=== PATIENT | female | born 1990 | race Caucasian/White ===

== ENCOUNTER 2017-04-04 03:38 | Inpatient (IN) | payer OTHER, BC ==
[2017-04-04] VITALS (16 sets, daily range): BP systolic 108–166; BP diastolic 64–87
[~2017-04-04] VITALS: Ht 175.3 cm; Wt 83.6 kg
[2017-04-04] MEDS ORDERED: PRENATAL TABLE1 EAC3 PO (04:32)
[2017-04-04 05:45] LABS: BASOPHIL (%) 0.7 % (0-1); BASOPHIL COUNT 0.1 K/uL (0-0.1); EOSINOPHIL (%) 0.2 % (0-5); HEMATOCRIT 39.2 % (36.0-46.0); HEMOGLOBIN 13.9 G/DL (11.9-15.5); LYMPHOCYTE (%) 14.9 % (15-42); LYMPHOCYTE COUNT 1.5 K/uL (1.0-2.8); MCH 29.6 PG (29.0-34.0); MCHC 35.5 G/DL (30.0-36.0); MCV 83.6 FL (83-99); MONOCYTE (%) 5.9 % (3-12); MONOCYTE COUNT 0.6 K/uL (0-0.8); NEUTROPHIL (%) 77.3 % (45-76); NEUTROPHIL COUNT 7.7 K/uL (1.8-6.4); PLATELET COUNT 182 K/uL (156-360); RBC DIS.WIDTH-CV 12.5 % (11.8-14.6); RBC DIS.WIDTH-SD 37.7 % (39-53); RED BLOOD COUNT 4.69 M/uL (3.80-5.20)
[2017-04-04] MEDS ORDERED: IBUPROFEN800 MG PO (22:18)
[2017-04-05 03:16] VITALS: BP 116/56
[2017-04-05 07:28] VITALS: BP 108/67
[2017-04-05 08:23] LABS: BASOPHIL (%) 0.2 % (0-1); EOSINOPHIL (%) 0.3 % (0-5); HEMATOCRIT 33.2 % (36.0-46.0); IMMATURE GRANULOCYTE (%) 0.6 % (0.0-0.7); LYMPHOCYTE (%) 12.4 % (15-42); MCH 29.5 PG (29.0-34.0); MCHC 34.3 G/DL (30.0-36.0); MONOCYTE (%) 10.9 % (3-12); MONOCYTE COUNT 1.7 K/uL (0-0.8); NEUTROPHIL (%) 75.6 % (45-76); NEUTROPHIL COUNT 11.9 K/uL (1.8-6.4); PLATELET COUNT 165 K/uL (156-360); RBC DIS.WIDTH-SD 39.6 % (39-53); RED BLOOD COUNT 3.86 M/uL (3.80-5.20); WHITE BLOOD COUNT 15.8 K/uL (4.1-10.2)
[2017-04-05 08:24] LABS: HEMOGLOBIN 11.4 G/DL (11.9-15.5)
[2017-04-05 11:21] VITALS: BP 117/67
[2017-04-05 14:44] VITALS: BP 104/68
[2017-04-05 23:20] VITALS: BP 122/73
[2017-04-06 07:15] VITALS: BP 104/58
== END 2017-04-06 12:10 | disposition home or self-care (01) | DRG 767 ==
LOC: LDRP-OP 03:38 → 2WEST 03:39
PROVIDERS: Nurse Practitioner; Obstetrics & Gynecology
DX: O70.1 Second degree perineal laceration during delivery (principal); O73.0 Retained placenta without hemorrhage; O90.1 Disruption of perineal obstetric wound; O75.89 Other specified complications of labor and delivery; O63.0 Prolonged first stage (of labor); O99.824 Streptococcus B carrier state complicating childbirth; Z87.891 Personal history of nicotine dependence; Z23 Encounter for immunization; Z3A.39 39 weeks gestation of pregnancy; Z37.0 Single live birth
CPT/HCPCS: 85025; 88307; 90686; J0595; J0690; J1170; J2175; J2210; J2250; J2405; J2540; J2590; J7120